=== PATIENT | female | born 1995 | race Caucasian/White ===

== ENCOUNTER 2018-08-13 12:13 | Emergency (ER) | payer OTHER, SELFPAY ==
[2018-08-13 12:30] VITALS: BP 110/68; PULSE 66; RESP 15; TEMP 37.3; O2SAT 100; BMI 25.7
--- NOTE | 2018-08-13 12:35 | ED_ITS ---
HPI - Ear Problem <STEPHANIE Bradford - Last Filed: 08/13/18 22:06> General Chief complaint: Ear Stated complaint: Pus and blood right ear Time Seen by Provider: 08/13/18 12:34 Source: patient Mode of arrival: ambulatory Limitations: no limitations History of Present Illness HPI Narrative: 23-year-old healthy female that is a nonsmoker here for complaint of drainage from her right ear that started earlier today. She states that she has had some purulent drainage along with some bleeding into her right ear. She was treated for otitis externa 2 days ago and provided with antibiotic drops patient does not know what prescription she was prescribed. She states she has decreased pain into her right ear canal as of now. No fevers no chills. She denies any trauma to the ear. She denies any other concerns or complaints. MD Complaint: ear pain and ear discharge Location: right ear Related Data Previous Rx's Medication Instructions Recorded ciprofloxacin-dexamethasone 4 drop EAR-RIGHT BID 7 Days #7.5 ml 08/13/18 [Ciprodex] Review of Systems <STEPHNAIE Bradford - Last Filed: 08/13/18 22:06> Review of Systems All systems reviewed & are unremarkable except as noted in HPI and below Constitutional Denies chills, Denies fever(s), Denies lethargy and Denies weakness Eyes Denies change in vision, Denies eye discharge, Denies irritation and Denies loss of vision ENT Ears, Nose, Mouth, and Throat: Reports ear discharge Cardiovascular Denies chest pain, Denies irregular heart rhythm, Denies lightheadedness, Denies palpitations, Denies dyspnea, Denies dyspnea on exertion and Denies orthopnea Respiratory Denies cough, Denies dyspnea, Denies dyspnea on exertion and Denies wheezing Gastrointestinal Gastrointestinal: Denies abdominal pain, Denies change in bowel habits, Denies diarrhea, Denies nausea and Denies vomiting Genitourinary Denies hematuria, Denies flank pain, Denies urinary incontinence and Denies urinary urgency Musculoskeletal Denies back pain, Denies muscle weakness, Denies numbness and Denies tingling Integumentary/Breasts Denies pruritus, Denies erythema, Denies rash and Denies wounds Neurologic Denies confusion, Denies loss of vision, Denies numbness, Denies tingling and Denies weakness Psychiatric Denies anxiety, Denies confusion, Denies depression, Denies homicidal ideation and Denies suicidal ideation Endocrine Denies palpitations Hematologic/Lymphatic Denies easy bruising Allergic/Immunologic Denies wheezing Exam <STEPHANIE Bradford - Last Filed: 08/13/18 22:06> Initial Vital Signs Initial Vital Signs: Vital Signs Temperature 99.1 F 08/13/18 12:30 Pulse Rate 66 08/13/18 12:30 Respiratory Rate 15 08/13/18 12:30 Blood Pressure 110/68 08/13/18 12:30 Pulse Oximetry 100 08/13/18 12:30 Const General: cooperative and well developed Nutritional Appearance: well nourished Orientation: alert, awake, oriented x3 and not confused HENMT Ears: hearing grossly normal bilaterally, external ears normal, TM's normal bilaterally and EAC abnormal otic discharge (Right external ear canal with purulent discharge) purulent Eyes Conjunctivae: conjunctivae normal Sclera: sclerae normal Pupils: PERRL EOM: EOM intact bilaterally Resp Effort & Inspection: normal respiratory effort, able to speak in complete sentences, no respiratory distress and no use of accessory muscles Auscultation: clear to auscultation bilaterally, no rales, no rhonchi and no wheezes Cardio Rate: regular rate Rhythm: regular rhythm Heart Sounds: no click, no gallops, no murmurs and no rubs Skin General: no rashes or lesions noted, No jaundice and No petechiae Neuro General: alert, oriented x3, gait normal and no focal motor deficits Speech: speech normal <Patt Singer DO - Last Filed: 08/14/18 07:29> Initial Vital Signs Initial Vital Signs: Vital Signs Temperature 99.1 F 08/13/18 12:30 Pulse Rate 66 08/13/18 12:30 Respiratory Rate 15 08/13/18 12:30 Blood Pressure 110/68 08/13/18 12:30 Pulse Oximetry 100 08/13/18 12:30 Course <STEPHANIE Bradford - Last Filed: 08/13/18 22:06> Vital Signs - 8 hr 08/13/18 12:30 Temperature 99.1 F Pulse Rate 66 Respiratory Rate 15 Blood Pressure 110/68 Pulse Oximetry 100 <Patt Singer DO - Last Filed: 08/14/18 07:29> Vital Signs - 8 hr 08/13/18 12:30 Temperature 99.1 F Pulse Rate 66 Respiratory Rate 15 Blood Pressure 110/68 Pulse Oximetry 100 Medical Decision Making <STEPHANIE Bradford - Last Filed: 08/13/18 22:06> [facility] Narrative Medical decision making narrative: On exam right tympanic membrane is intact and non erythematous or bulging. Purulent discharge to the external canal matias. No tenderness on exam. External ear canal was irrigated with mixture of peroxide and water. Purulent material was able to be gently flushed out. Discussed case with ENT Dr. Bhandari who recommends continuing with antibiotic drops. She is prescribed Ciprodex as not sure exactly what antibiotic which she was placed on. Follow up with primary care provider in the next couple of days for re-evaluation. For any worsening symptoms return to the emergency room. If continued problems recommend ENT referral. Use [id number] Tylenol as needed for any discomfort. Discharge Plan Departure Patient Disposition: Home Clinical Impression: Otitis externa Discharge Date/Time: 08/13/18 13:55 Interventions: ED Discharge Assessment Last Done: 08/13/18 13:54 Instructions: DI for Otitis Externa Activity Restrictions/Additional Instructions: Sinus symptoms presents as an external ear canal infection. Year prescribed Ciprodex and antibiotic use as directed. Use [id number] Tylenol as needed for any discomfort. Follow up with primary care provider the next few days for re-evaluation. If continued problems recommend ENT referral. For any worsening symptoms return to the emergency room. Prescriptions: New ciprofloxacin-dexamethasone [Ciprodex] 0.3-0.1 % drops,suspension 4 drop EAR-RIGHT BID 7 Days Qty: 7.5 RF: 0 Referrals: [facility] [Provider Group] <Patt Singer DO - Last Filed: 08/14/18 07:29> [facility] ED Attending Halie Attestation: I was immediately available in the department for consultation. Documentation has been reviewed. I agree with assessment and plan.
[2018-08-13 13:54] VITALS: BP 104/63; PULSE 81; RESP 16; O2SAT 100
--- NOTE | 2018-08-14 16:29 | PC.NURSE ---
call back, no answer
== END 2018-08-13 13:55 | disposition home or self-care (01) ==
PROVIDERS: Emergency Provider Nurse Practitioner Family
DX: H60.91 Unspecified otitis externa, right ear (principal)
CPT/HCPCS: 99282

== ENCOUNTER 2020-12-29 09:33 | Emergency (ER) | payer SELFPAY ==
[2020-12-29 09:39] VITALS: BP 111/56; PULSE 78; RESP 16; TEMP 37; O2SAT 98; BMI 27.4
--- NOTE | 2020-12-29 09:46 | ED.ANIMALBIT ---
HPI - Animal Bite General Chief Complaint: Animal Bite Stated Complaint: bit by a cat on right index finger Time Seen by Provider: 12/29/20 09:43 Source: patient Mode of arrival: Ambulatory Limitations: no limitations History of Present Illness HPI narrative: Patient is a 25-year-old who presents with right index finger cat bite. She says that her roommates cat went outside she went to pick her up and it bit her 3 times on the right index finger. Cat's shots are up-to-date patient's tetanus up-to-date. It is erythematous the distal tip today no streaking no decreased range of motion Related Data Previous Rx's Medication Instructions Recorded amoxicillin-pot clavulanate 1 tab PO Q12H #14 tab 12/29/20 [Augmentin] Allergies Allergy/AdvReac Type Severity Reaction Status Date / Time No Known Drug Allergies Allergy Verified 12/29/20 09:39 Review of Systems Review of Systems Narrative: GENERAL: Denies chills,fever HEENT: Denies throat pain RESPIRATORY: Denies dyspnea, cough, wheezing CARDIOVASCULAR: Denies chest pain, palpitations GASTROINTESTINAL: Denies nausea, vomiting MUSCULOSKELETAL: Denies extremity pain, injury SKIN: See HPI NEUROLOGIC: Denies weakness, dizziness, headache, numbness 8 point review of systems is negative except for those stated above and HPI Patient History Social History Smoking Status: Never smoker Smoking Status: Never smoker alcohol intake frequency: a few times a week Substance Use Type: does not use Exam Initial Vital Signs Initial Vital Signs: Vital Signs Temperature 98.6 F 12/29/20 09:39 Pulse Rate 78 12/29/20 09:39 Respiratory Rate 16 12/29/20 09:39 Blood Pressure 111/56 L 12/29/20 09:39 Pulse Oximetry 98 12/29/20 09:39 GENERAL: Well-appearing, well-nourished and in no acute distress. CARDIOVASCULAR: peripheral pulses in tact, cap refill <2 sec RESPIRATORY: No respiratory distress, speaks in full sentences without difficulty EXTREMITIES: Normal range of motion, no clubbing or edema. Neurovascularly intact NEUROLOGICAL: Cranial nerves II through XII grossly intact. Normal gait and speech. SKIN: Right index finger at the D IP erythematous puncture sites noted mild swelling full flexion and extension. Course Orders Ordered: ED Orders 12/29/20 09:52 XR finger RT min 2V Stat Vital Signs Vital signs: Vital Signs - 8 hr 12/29/20 09:39 Temperature 98.6 F Pulse Rate 78 Respiratory Rate 16 Blood Pressure 111/[address] [facility] - Animal Bite Imaging Data Extremity x-ray #1: Radiologist's Impression: PROCEDURE: XR FINGER RT MIN 2V INDICATIONS: cat bite index finger TECHNIQUE: AP hand, 2 views of the index finger(s) acquired. COMPARISON: None. FINDINGS: Bones: No fractures or dislocations. No suspicious bony lesions. Soft tissues: No suspicious soft tissue calcifications. No radiopaque foreign body. Soft tissue swelling of the index finger. IMPRESSION: No radiopaque foreign body. Soft tissue swelling of the index finger. Dictated by: Alexandre Chau M.D. on 12/29/2020 at 9:03 MDM Narrative Medical decision making narrative: No sign of flexor tenosynovitis. Areas currently read just at the distal part. No decreased range of motion. Discharge Plan Departure Patient Disposition: Home Clinical Impression: Cat bite Qualifiers: Encounter type: initial encounter Qualified Code(s): W55.01XA - Bitten by cat, initial encounter Instructions: DI for Cat Bite Activity Restrictions/Additional Instructions: *You have been diagnosed with right index finger cat bite *What to do: Keep area clean and dry monitor closely for worsening redness *Continue to take medications as directed Augmentin 875 mg twice a day for 7 days *Follow up with your primary care provider in 2-3 days *Return to ER if you should have increased redness streaking decreased range of motion fever or any new, worsening or concerning symptoms Prescriptions: New amoxicillin-pot clavulanate [Augmentin] 875-125 mg tablet 1 tab PO Q12H Qty: 14 RF: 0 Referrals: [facility] [Outside]
--- NOTE | 2020-12-29 09:52 | DI.RAD.S_ITS ---
PROCEDURE: XR FINGER RT MIN 2V INDICATIONS: cat bite index finger TECHNIQUE: AP hand, 2 views of the index finger(s) acquired. COMPARISON: None. FINDINGS: Bones: No fractures or dislocations. No suspicious bony lesions. Soft tissues: No suspicious soft tissue calcifications. No radiopaque foreign body. Soft tissue swelling of the index finger. IMPRESSION: No radiopaque foreign body. Soft tissue swelling of the index finger. Dictated by: Alexandre Chau M.D. on 12/29/2020 at 9:03 Approved by: Alexandre Chau M.D. on 12/29/2020 at 9:18
== END 2020-12-29 10:18 | disposition home or self-care (01) ==
PROVIDERS: Emergency Provider Emergency Medicine
DX: S61.250A Open bite of right index finger without damage to nail, initial encounter (principal); W55.01XA Bitten by cat, initial encounter
CPT/HCPCS: 73140; 99283